=== PATIENT | female | born 1955 | race Caucasian/White ===

== ENCOUNTER 2017-09-16 14:15 | Inpatient (IN) | payer OTHER ==
[2017-09-16 14:48] LABS: ADD MAN DIFF? NO
[2017-09-16 14:50] LABS: WHITE BLOOD COUNT 6.5 10^3/ul (4.8-10.8)
[2017-09-16 14:50] LABS: ABNORMAL IP MESSAGE 1; BASOPHILS % 0.2 % (0.0-2.0); EOSINOPHILS % 0.2 % (0.0-7.0); HEMATOCRIT 25.5 % (37.0-47.0); HEMOGLOBIN 7.4 g/dl (12.0-16.0); LYMPHOCYTES # 0.3 10^3/ul (0.8-2.9); LYMPHOCYTES % 4.6 % (15.0-51.0); MEAN CORPUSCULAR HEMOGLOBIN 25.6 pg (29.0-33.0); MEAN CORPUSCULAR VOLUME 88.2 fl (82.0-101.0); MONOCYTE # 0.2 10^3/ul (0.3-0.9); MONOCYTES % 3.7 % (0.0-11.0); NEUTROPHIL # 5.9 10^3/ul (1.6-7.5); PLATELET COUNT 159 10^3/UL (140-415); RED BLOOD COUNT 2.89 10^6/ul (4.20-5.40); RED CELL DISTRIBUTION WIDTH 15.7 % (11.5-14.5)
[2017-09-16 14:52] LABS: POSITIVE DIFF @See below
[2017-09-16 15:09] LABS: ALANINE AMINOTRANSFERASE 80 IU/L (13-69); ALBUMIN 2.8 g/dl (3.3-4.9); ALBUMIN/GLOBULIN RATIO 1.16; ALKALINE PHOSPHATASE 111 IU/L (42-121); ANION GAP 13 (8-16); ASPARTATE AMINO TRANSFERASE 105 IU/L (15-46); BILIRUBIN,INDIRECT 0.3 mg/dl (0-1.1); BILIRUBIN,TOTAL 0.3 mg/dl (0.2-1.3); BLOOD UREA NITROGEN 32 mg/dl (7-20); CALCIUM 8.1 mg/dl (8.4-10.2); CARBON DIOXIDE 21 mmol/L (21-31); CHLORIDE 115 mmol/L (97-110); CREATINE KINASE 25 IU/L (23-200); CREATININE 1.36 mg/dl (0.44-1.00); GLUCOSE 161 mg/dl (70-220); LIPASE 295 U/L (23-300); POTASSIUM 4.7 mmol/L (3.5-5.1); SODIUM 144 mmol/L (135-144); TOTAL PROTEIN 5.2 g/dl (6.1-8.1)
[2017-09-16 15:10] LABS: INR 1.32; PARTIAL THROMBOPLASTIN TIME 34.2 Sec (25.0-35.0); PROTIME 16.6 Sec (11.9-14.9); PT RATIO 1.3
[2017-09-16 15:12] LABS: ADD UMIC YES; UR ASCORBIC ACID NEGATIVE (NEGATIVE); UR BACTERIA FEW /HPF (NONE SEEN); UR BILIRUBIN (Dip) NEGATIVE (NEGATIVE); UR BLOOD (Dip) 2+ mg/dL (NEGATIVE); UR CLARITY CLEAR (CLEAR); UR COLOR YELLOW (YELLOW); UR GLUCOSE (Dip) 1+ mg/dL (NEGATIVE); UR KETONES (Dip) NEGATIVE (NEGATIVE); UR LEUKOCYTE ESTERASE (Dip) 1+ Leu/ul (NEGATIVE); UR NITRITE (Dip) NEGATIVE (NEGATIVE); UR RBC 1 /HPF (0-5); UR TOTAL PROTEIN (Dip) NEGATIVE (NEGATIVE); UR UROBILINOGEN (Dip) NEGATIVE (NEGATIVE); UR WBC 14 /HPF (0-5)
[2017-09-16 15:21] LABS: B-TYPE NATRIURETIC PEPTIDE 4800 PG/ML (0-125); CK INDEX 1.8; CK-MB 0.45 ng/ml (0.0-2.4); TROPONIN-I 0.013 ng/ml (0.000-0.120)
[2017-09-16] MEDS: CEFTRIAXONE 1 GM/50 ML (PMX) 50 ML IVPB (17:43)
[2017-09-16] MEDS: AZITHROMYCIN 500MG/NS (PMX) 250 ML IV (18:19)
[2017-09-16] MEDS ORDERED: IPRATROPIUM (NEB) 0.5 MG/2.5 ML AMP HHN (20:30)
[2017-09-16] MEDS ORDERED: DOCUSATE SODIUM 100 MG CAP PO ×2 (20:30→21:00)
[2017-09-16] MEDS ORDERED: LEVALBUTEROL (NEB) 0.63 MG/3 ML AMP HHN (20:30)
[2017-09-16] MEDS ORDERED: MYCOPHENOLATE 250 MG CAP PO (21:00)
[2017-09-16] MEDS ORDERED: NACL 0.9% 3 ML SYG IV (21:00)
[2017-09-16] MEDS ORDERED: BISACODYL (EC) 5 MG TAB PO (21:00)
[2017-09-16] MEDS ORDERED: NITROGLYCERIN (SL) 0.4 MG TAB SL (21:00)
[2017-09-16] MEDS ORDERED: ONDANSETRON 4 MG INJ IV (21:00)
[2017-09-16] MEDS ORDERED: morphine LIQ (10 MG/5 ML) CUP PO (21:00)
[2017-09-16] MEDS: MYCOPHENOLATE MOFETIL 500 MG TABLET PO (22:15)
[2017-09-16] MEDS: SOD CHLORIDE 0.9% 1,000 ML IV (22:15)
[2017-09-16] MEDS: CYCLOSPORINE MICROEMULS 25 MG CAP PO (22:16)
[2017-09-16] MEDS: ATORVASTATIN 20 MG TAB PO (22:16)
[2017-09-17 06:22] LABS: ADD MAN DIFF? NO
[2017-09-17 06:29] LABS: ABNORMAL IP MESSAGE 1; BASOPHILS % 0.2 % (0.0-2.0); EOSINOPHILS % 0.6 % (0.0-7.0); HEMATOCRIT 21.5 % (37.0-47.0); LYMPHOCYTES # 1.5 10^3/ul (0.8-2.9); LYMPHOCYTES % 28.5 % (15.0-51.0); MEAN CORPUSCULAR HEMOGLOBIN 25.4 pg (29.0-33.0); MEAN CORPUSCULAR HGB CONC 28.8 g/dl (32.0-37.0); MEAN CORPUSCULAR VOLUME 88.1 fl (82.0-101.0); MEAN PLATELET VOLUME 11.3 fl (7.4-10.4); MONOCYTE # 0.6 10^3/ul (0.3-0.9); MONOCYTES % 11.7 % (0.0-11.0); NEUTROPHIL # 3.1 10^3/ul (1.6-7.5); NEUTROPHILS % 58.8 % (39.0-77.0); PLATELET COUNT 144 10^3/UL (140-415); RED BLOOD COUNT 2.44 10^6/ul (4.20-5.40); RED CELL DISTRIBUTION WIDTH 15.6 % (11.5-14.5)
[2017-09-17 06:29] LABS: WHITE BLOOD COUNT 5.2 10^3/ul (4.8-10.8)
[2017-09-17 06:39] LABS: IRON 67 ug/dl (35-150)
[2017-09-17 06:49] LABS: % IRON SATURATION 38 % SAT (22-52); TOTAL IRON BINDING CAPACITY 176 ug/dl (241-421)
[2017-09-17 06:57] LABS: ALANINE AMINOTRANSFERASE 61 IU/L (13-69); ALBUMIN 2.3 g/dl (3.3-4.9); ALBUMIN/GLOBULIN RATIO 0.95; ALKALINE PHOSPHATASE 86 IU/L (42-121); ANION GAP 10 (8-16); ASPARTATE AMINO TRANSFERASE 41 IU/L (15-46); BILIRUBIN,INDIRECT 0.1 mg/dl (0-1.1); BILIRUBIN,TOTAL 0.1 mg/dl (0.2-1.3); BLOOD UREA NITROGEN 30 mg/dl (7-20); CALCIUM 8.2 mg/dl (8.4-10.2); CARBON DIOXIDE 21 mmol/L (21-31); CHLORIDE 121 mmol/L (97-110); CREATININE 1.32 mg/dl (0.44-1.00); GLUCOSE 78 mg/dl (70-220); HDL CHOLESTEROL 19 mg/dl (35-98); MAGNESIUM 1.7 mg/dl (1.7-2.5); POTASSIUM 5.1 mmol/L (3.5-5.1); SODIUM 147 mmol/L (135-144); TOTAL PROTEIN 4.7 g/dl (6.1-8.1); TRIGLYCERIDES 73 mg/dl (0-149)
[2017-09-17] MEDS ORDERED: APIXABAN 5 MG TABLET PO (07:00)
[2017-09-17 07:08] LABS: CHOLESTEROL < 50 mg/dl (100-200)
[2017-09-17 07:10] LABS: HEMOGLOBIN 6.2 g/dl (12.0-16.0); POSITIVE DIFF @See below
[2017-09-17 07:12] LABS: THYROID STIMULATING HORMONE 0.748 MIU/L (0.465-4.680)
[2017-09-17 07:31] LABS: HEMOGLOBIN A1C 5.4 % (0-5.9)
[2017-09-17] MEDS: FEBUXOSTAT 40 MG TABLET PO (09:38)
[2017-09-17] MEDS: predniSONE 5 MG TAB PO (09:38)
[2017-09-17] MEDS: METOPROLOL (XL) 25 MG TAB PO (09:38)
[2017-09-17] MEDS: MYCOPHENOLATE MOFETIL 500 MG TABLET PO ×2 (09:38→20:37)
[2017-09-17] MEDS: FAMOTIDINE 20 MG TAB PO ×2 (09:38→20:37)
[2017-09-17] MEDS: CYCLOSPORINE MICROEMULS 25 MG CAP PO ×2 (09:38→20:37)
[2017-09-17] MEDS: NA BICARBONATE 650 MG TAB PO (09:39)
[2017-09-17] MEDS ORDERED: PROVENTIL HFA 6.7GM INHALER INH (11:30)
[2017-09-17] MEDS: FISH OIL 1,000 MG CAP PO ×2 (12:23→20:36)
[2017-09-17] MEDS: CALCITRIOL 0.25 MCG CAP PO (12:23)
[2017-09-17] MEDS: PEG/ELECTROLYTES 4L BTL PO (13:00)
[2017-09-17 13:21] LABS: IMMEDIATE SPIN CROSSMATCH 1 2
[2017-09-17] MEDS: ACETAMINOPHEN 325 MG TAB PO (13:47)
[2017-09-17] MEDS: LACTULOSE 30ML CUP PO ×2 (15:29→19:44)
[2017-09-17] MEDS ORDERED: CEFTRIAXONE 1 GM/50 ML (PMX) 50 ML IVPB (17:00)
[2017-09-17] MEDS: EPOETIN 10000 UNITS/1 ML INJ (ESRD) SC (17:49)
[2017-09-17 17:57] LABS: OCCULT BLOOD STOOL NEGATIVE (NEGATIVE)
[2017-09-17] MEDS ORDERED: AZITHROMYCIN 500MG/NS (PMX) 250 ML IVPB (18:00)
[2017-09-17] MEDS: ATORVASTATIN 20 MG TAB PO (20:36)
[2017-09-18] MEDS: LACTULOSE 30ML CUP PO ×4 (01:18→21:13)
[2017-09-18] MEDS: hydrALAzine 20 MG INJ IV (06:51)
[2017-09-18 07:06] LABS: ADD MAN DIFF? NO
[2017-09-18 07:08] LABS: BASOPHILS % 0.2 % (0.0-2.0); EOSINOPHILS % 0.2 % (0.0-7.0); HEMATOCRIT 31.7 % (37.0-47.0); HEMOGLOBIN 9.8 g/dl (12.0-16.0); LYMPHOCYTES # 1.5 10^3/ul (0.8-2.9); LYMPHOCYTES % 22.1 % (15.0-51.0); MEAN CORPUSCULAR HEMOGLOBIN 26.1 pg (29.0-33.0); MEAN CORPUSCULAR HGB CONC 30.9 g/dl (32.0-37.0); MEAN CORPUSCULAR VOLUME 84.3 fl (82.0-101.0); MEAN PLATELET VOLUME 11.2 fl (7.4-10.4); MONOCYTE # 0.7 10^3/ul (0.3-0.9); MONOCYTES % 10.4 % (0.0-11.0); NEUTROPHIL # 4.4 10^3/ul (1.6-7.5); NEUTROPHILS % 66.8 % (39.0-77.0); PLATELET COUNT 157 10^3/UL (140-415); RED BLOOD COUNT 3.76 10^6/ul (4.20-5.40); RED CELL DISTRIBUTION WIDTH 15.4 % (11.5-14.5)
[2017-09-18 07:08] LABS: WHITE BLOOD COUNT 6.6 10^3/ul (4.8-10.8)
[2017-09-18 07:36] LABS: ANION GAP 14 (8-16); BLOOD UREA NITROGEN 28 mg/dl (7-20); CARBON DIOXIDE 23 mmol/L (21-31); CHLORIDE 116 mmol/L (97-110); CREATININE 1.43 mg/dl (0.44-1.00); GLUCOSE 78 mg/dl (70-220); MAGNESIUM 1.7 mg/dl (1.7-2.5); PHOSPHORUS 3.4 mg/dl (2.5-4.9); POTASSIUM 4.8 mmol/L (3.5-5.1); SODIUM 148 mmol/L (135-144)
[2017-09-18] MEDS ORDERED: METOPROLOL (XL) 25 MG TAB PO (09:00)
[2017-09-18] MEDS: FEBUXOSTAT 40 MG TABLET PO (09:28)
[2017-09-18] MEDS: MYCOPHENOLATE MOFETIL 500 MG TABLET PO ×2 (09:28→21:19)
[2017-09-18] MEDS: predniSONE 5 MG TAB PO (09:28)
[2017-09-18] MEDS: FISH OIL 1,000 MG CAP PO ×2 (09:28→21:12)
[2017-09-18] MEDS: FAMOTIDINE 20 MG TAB PO ×2 (09:28→21:12)
[2017-09-18] MEDS: NA BICARBONATE 650 MG TAB PO (09:28)
[2017-09-18] MEDS: CALCITRIOL 0.25 MCG CAP PO (09:28)
[2017-09-18] MEDS: CYCLOSPORINE MICROEMULS 25 MG CAP PO ×2 (09:28→21:19)
[2017-09-18] MEDS: ACETAMINOPHEN 325 MG TAB PO (10:42)
[2017-09-18] MEDS ORDERED: ALBUMIN HUMAN 25% 50 ML IV (11:00)
[2017-09-18] MEDS ORDERED: PROPOFOL 20 ML (17:41)
[2017-09-18] MEDS ORDERED: FENTAnyl 50 MCG/ML VIAL (17:42)
[2017-09-18] MEDS ORDERED: MIDAZOLAM 1 MG/ML 2 ML INJ (17:42)
[2017-09-18] MEDS: ATORVASTATIN 20 MG TAB PO (21:12)
[2017-09-19] MEDS: LACTULOSE 30ML CUP PO ×4 (01:00→13:00)
[2017-09-19] MEDS: CYCLOSPORINE MICROEMULS 25 MG CAP PO ×2 (09:06→20:35)
[2017-09-19] MEDS: FEBUXOSTAT 40 MG TABLET PO (09:06)
[2017-09-19] MEDS: CALCITRIOL 0.25 MCG CAP PO (09:06)
[2017-09-19] MEDS: NA BICARBONATE 650 MG TAB PO (09:06)
[2017-09-19] MEDS: FAMOTIDINE 20 MG TAB PO (09:07)
[2017-09-19] MEDS: predniSONE 5 MG TAB PO (09:07)
[2017-09-19] MEDS: FISH OIL 1,000 MG CAP PO ×2 (09:07→20:36)
[2017-09-19] MEDS: MYCOPHENOLATE MOFETIL 500 MG TABLET PO ×2 (09:07→20:35)
[2017-09-19 10:17] LABS: ADD MAN DIFF? NO
[2017-09-19 10:24] LABS: WHITE BLOOD COUNT 4.9 10^3/ul (4.8-10.8)
[2017-09-19 10:24] LABS: BASOPHILS % 0.2 % (0.0-2.0); EOSINOPHILS % 0.2 % (0.0-7.0); HEMATOCRIT 33.9 % (37.0-47.0); HEMOGLOBIN 10.4 g/dl (12.0-16.0); LYMPHOCYTES # 0.9 10^3/ul (0.8-2.9); LYMPHOCYTES % 17.4 % (15.0-51.0); MEAN CORPUSCULAR HEMOGLOBIN 26.4 pg (29.0-33.0); MEAN CORPUSCULAR HGB CONC 30.7 g/dl (32.0-37.0); MEAN PLATELET VOLUME 11.5 fl (7.4-10.4); MONOCYTE # 0.6 10^3/ul (0.3-0.9); MONOCYTES % 13.1 % (0.0-11.0); NEUTROPHIL # 3.3 10^3/ul (1.6-7.5); NEUTROPHILS % 68.5 % (39.0-77.0); PLATELET COUNT 162 10^3/UL (140-415); RED BLOOD COUNT 3.94 10^6/ul (4.20-5.40); RED CELL DISTRIBUTION WIDTH 15.9 % (11.5-14.5)
[2017-09-19 10:54] LABS: ANION GAP 13 (8-16); BLOOD UREA NITROGEN 21 mg/dl (7-20); CALCIUM 9.1 mg/dl (8.4-10.2); CARBON DIOXIDE 25 mmol/L (21-31); CHLORIDE 115 mmol/L (97-110); CREATININE 1.23 mg/dl (0.44-1.00); GLUCOSE 100 mg/dl (70-220); MAGNESIUM 1.6 mg/dl (1.7-2.5); PHOSPHORUS 3.9 mg/dl (2.5-4.9); POTASSIUM 4.8 mmol/L (3.5-5.1); SODIUM 148 mmol/L (135-144)
[2017-09-19] MEDS: MEROPENEM 1 GM/50ML(PMX) 50 ML IVPB ×2 (11:23→20:36)
[2017-09-19] MEDS: MAGNESIUM SULFATE 1 GM/D5W 100 ML IVPB (15:11)
[2017-09-19] MEDS: hydrALAzine 20 MG INJ IV (16:27)
[2017-09-19] MEDS: EPOETIN 10000 UNITS/1 ML INJ (ESRD) SC (16:29)
[2017-09-19] MEDS: PANTOPRAZOLE (EC) 40 MG TAB PO (17:29)
[2017-09-19] MEDS ORDERED: PANTOPRAZOLE (EC) 40 MG TAB PO (18:00)
[2017-09-19] MEDS: ATORVASTATIN 20 MG TAB PO (20:36)
[2017-09-19] MEDS: ACETAMINOPHEN 325 MG TAB PO (20:39)
[2017-09-19] MEDS ORDERED: APIXABAN 5 MG TABLET PO (21:00)
[2017-09-20] MEDS: PANTOPRAZOLE (EC) 40 MG TAB PO ×2 (05:47→17:09)
[2017-09-20 08:42] LABS: ADD MAN DIFF? NO
[2017-09-20 08:44] LABS: WHITE BLOOD COUNT 5.5 10^3/ul (4.8-10.8)
[2017-09-20 08:44] LABS: BASOPHILS % 0.2 % (0.0-2.0); EOSINOPHILS # 0.1 10^3/ul (0.0-0.5); EOSINOPHILS % 0.9 % (0.0-7.0); HEMATOCRIT 33.8 % (37.0-47.0); HEMOGLOBIN 10.6 g/dl (12.0-16.0); LYMPHOCYTES # 1.5 10^3/ul (0.8-2.9); LYMPHOCYTES % 26.6 % (15.0-51.0); MEAN CORPUSCULAR HEMOGLOBIN 26.8 pg (29.0-33.0); MEAN CORPUSCULAR HGB CONC 31.4 g/dl (32.0-37.0); MEAN CORPUSCULAR VOLUME 85.4 fl (82.0-101.0); MEAN PLATELET VOLUME 10.2 fl (7.4-10.4); MONOCYTE # 0.8 10^3/ul (0.3-0.9); MONOCYTES % 14.8 % (0.0-11.0); NEUTROPHIL # 3.1 10^3/ul (1.6-7.5); PLATELET COUNT 158 10^3/UL (140-415); RED BLOOD COUNT 3.96 10^6/ul (4.20-5.40); RED CELL DISTRIBUTION WIDTH 15.7 % (11.5-14.5)
[2017-09-20] MEDS: MEROPENEM 1 GM/50ML(PMX) 50 ML IVPB ×2 (08:49→22:14)
[2017-09-20] MEDS: CALCITRIOL 0.25 MCG CAP PO (08:49)
[2017-09-20] MEDS: CYCLOSPORINE MICROEMULS 25 MG CAP PO ×2 (08:49→22:20)
[2017-09-20] MEDS: NA BICARBONATE 650 MG TAB PO (08:49)
[2017-09-20] MEDS: FISH OIL 1,000 MG CAP PO ×2 (08:49→22:14)
[2017-09-20] MEDS: FEBUXOSTAT 40 MG TABLET PO (08:50)
[2017-09-20] MEDS: MYCOPHENOLATE MOFETIL 500 MG TABLET PO ×2 (08:50→22:15)
[2017-09-20] MEDS: predniSONE 5 MG TAB PO (08:50)
[2017-09-20] MEDS ORDERED: PANTOPRAZOLE (EC) 40 MG TAB PO (09:00)
[2017-09-20 09:06] LABS: ANION GAP 14 (8-16); BLOOD UREA NITROGEN 15 mg/dl (7-20); CALCIUM 8.9 mg/dl (8.4-10.2); CARBON DIOXIDE 25 mmol/L (21-31); CHLORIDE 111 mmol/L (97-110); CREATININE 1.26 mg/dl (0.44-1.00); GLUCOSE 87 mg/dl (70-220); MAGNESIUM 1.8 mg/dl (1.7-2.5); PHOSPHORUS 3.5 mg/dl (2.5-4.9); POTASSIUM 3.8 mmol/L (3.5-5.1); SODIUM 146 mmol/L (135-144)
[2017-09-20] MEDS ORDERED: LIDOCAINE 1% (MPF) 5 ML VIAL SC (15:30)
[2017-09-20 16:27] LABS: CYCLOSPORIN 238 mcg/L
[2017-09-20] MEDS: MAGNESIUM SULFATE 2 GM/50 ML 50 ML IVPB (17:09)
[2017-09-20] MEDS: POTASSIUM CHLORIDE (SR) 10 MEQ TAB PO (17:10)
[2017-09-20] MEDS: ATORVASTATIN 20 MG TAB PO (22:14)
[2017-09-20] MEDS: APIXABAN 5 MG TABLET PO (22:14)
[2017-09-21] MEDS: PANTOPRAZOLE (EC) 40 MG TAB PO ×2 (05:53→17:10)
[2017-09-21 07:34] LABS: ADD MAN DIFF? NO
[2017-09-21 07:40] LABS: WHITE BLOOD COUNT 5.2 10^3/ul (4.8-10.8)
[2017-09-21 07:40] LABS: BASOPHILS % 0.2 % (0.0-2.0); EOSINOPHILS # 0.1 10^3/ul (0.0-0.5); EOSINOPHILS % 1.1 % (0.0-7.0); HEMATOCRIT 34.5 % (37.0-47.0); HEMOGLOBIN 10.6 g/dl (12.0-16.0); LYMPHOCYTES # 1.6 10^3/ul (0.8-2.9); MEAN CORPUSCULAR HEMOGLOBIN 25.9 pg (29.0-33.0); MEAN CORPUSCULAR HGB CONC 30.7 g/dl (32.0-37.0); MEAN CORPUSCULAR VOLUME 84.4 fl (82.0-101.0); MEAN PLATELET VOLUME 10.6 fl (7.4-10.4); MONOCYTE # 0.9 10^3/ul (0.3-0.9); MONOCYTES % 16.4 % (0.0-11.0); NEUTROPHIL # 2.7 10^3/ul (1.6-7.5); NEUTROPHILS % 51.7 % (39.0-77.0); PLATELET COUNT 167 10^3/UL (140-415); RED BLOOD COUNT 4.09 10^6/ul (4.20-5.40); RED CELL DISTRIBUTION WIDTH 15.8 % (11.5-14.5)
[2017-09-21 08:02] LABS: ANION GAP 12 (8-16); BLOOD UREA NITROGEN 12 mg/dl (7-20); CALCIUM 9.2 mg/dl (8.4-10.2); CARBON DIOXIDE 27 mmol/L (21-31); CHLORIDE 112 mmol/L (97-110); CREATININE 1.26 mg/dl (0.44-1.00); GLUCOSE 91 mg/dl (70-220); SODIUM 146 mmol/L (135-144)
[2017-09-21] MEDS: predniSONE 5 MG TAB PO (09:02)
[2017-09-21] MEDS: FEBUXOSTAT 40 MG TABLET PO (09:02)
[2017-09-21] MEDS: FISH OIL 1,000 MG CAP PO ×2 (09:02→20:38)
[2017-09-21] MEDS: APIXABAN 5 MG TABLET PO ×2 (09:02→20:38)
[2017-09-21] MEDS: NA BICARBONATE 650 MG TAB PO (09:02)
[2017-09-21] MEDS: CYCLOSPORINE MICROEMULS 25 MG CAP PO ×2 (09:02→20:38)
[2017-09-21] MEDS: MYCOPHENOLATE MOFETIL 500 MG TABLET PO ×2 (09:02→20:38)
[2017-09-21] MEDS: MEROPENEM 1 GM/50ML(PMX) 50 ML IVPB ×2 (09:10→20:38)
[2017-09-21] MEDS: CALCITRIOL 0.25 MCG CAP PO (11:20)
[2017-09-21] MEDS: MAGNESIUM SULFATE 2 GM/50 ML 50 ML IVPB (14:41)
[2017-09-21] MEDS: EPOETIN 10000 UNITS/1 ML INJ (ESRD) SC (17:11)
[2017-09-21] MEDS: ATORVASTATIN 20 MG TAB PO (20:38)
[2017-09-22] MEDS: PANTOPRAZOLE (EC) 40 MG TAB PO ×2 (06:14→18:02)
[2017-09-22 08:49] LABS: ADD MAN DIFF? NO
[2017-09-22 08:53] LABS: BASOPHILS % 0.2 % (0.0-2.0); EOSINOPHILS # 0.1 10^3/ul (0.0-0.5); EOSINOPHILS % 1.3 % (0.0-7.0); HEMATOCRIT 36.5 % (37.0-47.0); HEMOGLOBIN 11.1 g/dl (12.0-16.0); LYMPHOCYTES # 1.5 10^3/ul (0.8-2.9); LYMPHOCYTES % 28.5 % (15.0-51.0); MEAN CORPUSCULAR HGB CONC 30.4 g/dl (32.0-37.0); MEAN CORPUSCULAR VOLUME 85.5 fl (82.0-101.0); MONOCYTE # 0.8 10^3/ul (0.3-0.9); MONOCYTES % 14.8 % (0.0-11.0); NEUTROPHILS % 54.8 % (39.0-77.0); PLATELET COUNT 173 10^3/UL (140-415); RED BLOOD COUNT 4.27 10^6/ul (4.20-5.40); RED CELL DISTRIBUTION WIDTH 15.8 % (11.5-14.5)
[2017-09-22 08:53] LABS: WHITE BLOOD COUNT 5.4 10^3/ul (4.8-10.8)
[2017-09-22 09:13] LABS: ANION GAP 13 (8-16); BLOOD UREA NITROGEN 12 mg/dl (7-20); CARBON DIOXIDE 28 mmol/L (21-31); CHLORIDE 108 mmol/L (97-110); CREATININE 1.23 mg/dl (0.44-1.00); GLUCOSE 85 mg/dl (70-220); POTASSIUM 3.8 mmol/L (3.5-5.1); SODIUM 145 mmol/L (135-144)
[2017-09-22] MEDS: FISH OIL 1,000 MG CAP PO (09:18)
[2017-09-22] MEDS: MYCOPHENOLATE MOFETIL 500 MG TABLET PO (09:18)
[2017-09-22] MEDS: MEROPENEM 1 GM/50ML(PMX) 50 ML IVPB ×2 (09:18→17:08)
[2017-09-22] MEDS: CYCLOSPORINE MICROEMULS 25 MG CAP PO (09:18)
[2017-09-22] MEDS: FEBUXOSTAT 40 MG TABLET PO (09:18)
[2017-09-22] MEDS: APIXABAN 5 MG TABLET PO (09:19)
[2017-09-22] MEDS: CALCITRIOL 0.25 MCG CAP PO (09:19)
[2017-09-22] MEDS: NA BICARBONATE 650 MG TAB PO (09:19)
[2017-09-22] MEDS: predniSONE 5 MG TAB PO (09:19)
== END 2017-09-22 19:30 | disposition home health service (06) | DRG 308 ==
LOC: E/R 14:15 → MS4 17:29
PROC: 0DBM8ZX Excision of Descending Colon, Via Natural or Artificial Opening Endoscopic, Diagnostic (ICD-10-PCS; principal; 2017-09-18 16:56)
PROC: 0DB38ZX Excision of Lower Esophagus, Via Natural or Artificial Opening Endoscopic, Diagnostic (ICD-10-PCS; 2017-09-18 16:56)
PROC: 0DB68ZX Excision of Stomach, Via Natural or Artificial Opening Endoscopic, Diagnostic (ICD-10-PCS; 2017-09-18 16:56)
PROC: 30233N1 Transfusion of Nonautologous Red Blood Cells into Peripheral Vein, Percutaneous Approach (ICD-10-PCS; 2017-09-18 16:56)
DX: I47.1 Supraventricular tachycardia (principal); J18.9 Pneumonia, unspecified organism; K25.4 Chronic or unspecified gastric ulcer with hemorrhage; N18.6 End stage renal disease; N39.0 Urinary tract infection, site not specified; E87.0 Hyperosmolality and hypernatremia; Z94.0 Kidney transplant status; I12.0 Hypertensive chronic kidney disease with stage 5 chronic kidney disease or end stage renal disease; D62 Acute posthemorrhagic anemia; T86.12 Kidney transplant failure; D63.1 Anemia in chronic kidney disease; E78.00 Pure hypercholesterolemia, unspecified; I48.0 Paroxysmal atrial fibrillation; I34.0 Nonrheumatic mitral (valve) insufficiency; I07.1 Rheumatic tricuspid insufficiency; I12.9 Hypertensive chronic kidney disease with stage 1 through stage 4 chronic kidney disease, or unspecified chronic kidney disease; N18.3 Chronic kidney disease, stage 3 (moderate); K21.0 Gastro-esophageal reflux disease with esophagitis; K57.30 Diverticulosis of large intestine without perforation or abscess without bleeding; K63.5 Polyp of colon; K64.8 Other hemorrhoids; K64.4 Residual hemorrhoidal skin tags; B96.20 Unspecified Escherichia coli [E. coli] as the cause of diseases classified elsewhere; Z16.12 Extended spectrum beta lactamase (ESBL) resistance; M10.9 Gout, unspecified; Z86.73 Personal history of transient ischemic attack (TIA), and cerebral infarction without residual deficits; Z79.01 Long term (current) use of anticoagulants; Z79.899 Other long term (current) drug therapy
CPT/HCPCS: 36415; 36430; 71045; 76705; 80048; 80053; 80061; 80158; 81001; 82270; 82550; 82553; 83036; 83540; 83690; 83735; 83880; 84100; 84443; 84484; 85025; 85610; 85730; 86850; 86900; 86901; 86920; 87040; 87086; 88305; 88312; 88313; 88342; 93306; 96365; 96375; 99291-25

== ENCOUNTER 2017-10-20 11:23 | Inpatient (IN) | payer OTHER ==
[2017-10-20] MEDS: SOD CHLORIDE 0.9% 500 ML IV (12:34)
[2017-10-20] MEDS: ASPIRIN 81 MG TAB PO (12:34)
[2017-10-20 13:04] LABS: ADD MAN DIFF? NO
[2017-10-20 13:06] LABS: BASOPHILS % 0.1 % (0.0-2.0); HEMATOCRIT 32.3 % (37.0-47.0); HEMOGLOBIN 10.1 g/dl (12.0-16.0); LYMPHOCYTES # 1.2 10^3/ul (0.8-2.9); LYMPHOCYTES % 13.1 % (15.0-51.0); MEAN CORPUSCULAR HEMOGLOBIN 26.4 pg (29.0-33.0); MEAN CORPUSCULAR HGB CONC 31.3 g/dl (32.0-37.0); MEAN CORPUSCULAR VOLUME 84.3 fl (82.0-101.0); MEAN PLATELET VOLUME 10.8 fl (7.4-10.4); MONOCYTE # 1.3 10^3/ul (0.3-0.9); MONOCYTES % 14.1 % (0.0-11.0); NEUTROPHIL # 6.5 10^3/ul (1.6-7.5); NEUTROPHILS % 72.3 % (39.0-77.0); PLATELET COUNT 200 10^3/UL (140-415); RED BLOOD COUNT 3.83 10^6/ul (4.20-5.40); RED CELL DISTRIBUTION WIDTH 14.9 % (11.5-14.5)
[2017-10-20 13:12] LABS: ALANINE AMINOTRANSFERASE 77 IU/L (13-69); ALBUMIN 2.9 g/dl (3.3-4.9); ALBUMIN/GLOBULIN RATIO 1.16; ALKALINE PHOSPHATASE 100 IU/L (42-121); ANION GAP 15 (8-16); ASPARTATE AMINO TRANSFERASE 104 IU/L (15-46); BILIRUBIN,INDIRECT 0.9 mg/dl (0-1.1); BILIRUBIN,TOTAL 0.9 mg/dl (0.2-1.3); BLOOD UREA NITROGEN 24 mg/dl (7-20); CALCIUM 8.4 mg/dl (8.4-10.2); CARBON DIOXIDE 20 mmol/L (21-31); CHLORIDE 109 mmol/L (97-110); CREATININE 1.18 mg/dl (0.44-1.00); GLUCOSE 104 mg/dl (70-220); LIPASE 195 U/L (23-300); POTASSIUM 3.5 mmol/L (3.5-5.1); SODIUM 140 mmol/L (135-144); TOTAL PROTEIN 5.4 g/dl (6.1-8.1)
[2017-10-20 13:23] LABS: TROPONIN-I 0.047 ng/ml (0.000-0.120)
[2017-10-20] MEDS ORDERED: MAGNESIUM HYDROXIDE 30ML CUP PO (16:30)
[2017-10-20] MEDS ORDERED: NA PHOSPHATE/BIPHOS 133 ML ENEMA PR (16:30)
[2017-10-20] MEDS ORDERED: HYDROCODONE/APAP (5/325) TAB PO (16:30)
[2017-10-20] MEDS ORDERED: morphine 2 MG INJ IV (16:30)
[2017-10-20] MEDS ORDERED: NACL 0.9% 3 ML SYG IV (16:30)
[2017-10-20] MEDS ORDERED: LORAZEPAM 2 MG INJ IV (16:30)
[2017-10-20] MEDS ORDERED: DOCUSATE SODIUM 100 MG CAP PO ×2 (16:30→17:00)
[2017-10-20] MEDS: SOD CHLORIDE 0.45% 1,000 ML IV (16:41)
[2017-10-20] MEDS ORDERED: ACETAMINOPHEN 325 MG TAB PO (17:00)
[2017-10-20] MEDS ORDERED: ALBUTEROL HFA 8 GM INHALER INH (17:00)
[2017-10-20 17:07] LABS: FREE T4 (FREE THYROXINE) 1.31 ng/dl (0.78-2.44)
[2017-10-20] MEDS: PANTOPRAZOLE (EC) 40 MG TAB PO (17:21)
[2017-10-20] MEDS: LIDOCAINE 2% VISC 15 ML CUP PO (17:21)
[2017-10-20] MEDS: ONDANSETRON 4 MG INJ IV (18:28)
[2017-10-20 18:37] LABS: CREATINE KINASE 42 IU/L (23-200)
[2017-10-20 18:47] LABS: CK INDEX 7.4; CK-MB 3.12 ng/ml (0.0-2.4)
[2017-10-20 18:51] LABS: TROPONIN-I 0.582 ng/ml (0.000-0.120)
[2017-10-20] MEDS: FISH OIL 1,000 MG CAP PO (20:43)
[2017-10-20] MEDS: MYCOPHENOLATE 250 MG CAP PO (20:43)
[2017-10-20] MEDS: CYCLOSPORINE MICROEMULS 25 MG CAP PO (20:44)
[2017-10-20] MEDS: ENOXAPARIN 80 MG/0.8 ML SYG SC (20:47)
[2017-10-20] MEDS: ATORVASTATIN 20 MG TAB PO (20:50)
[2017-10-20] MEDS ORDERED: APIXABAN 5 MG TABLET PO (21:00)
[2017-10-20] MEDS: DILTIAZEM (CD) 120 MG CAP PO (21:28)
[2017-10-20 21:47] LABS: ADD UMIC NO; UR ASCORBIC ACID NEGATIVE (NEGATIVE); UR BILIRUBIN (Dip) NEGATIVE (NEGATIVE); UR BLOOD (Dip) NEGATIVE (NEGATIVE); UR CLARITY CLEAR (CLEAR); UR COLOR STRAW (YELLOW); UR GLUCOSE (Dip) NEGATIVE (NEGATIVE); UR KETONES (Dip) NEGATIVE (NEGATIVE); UR LEUKOCYTE ESTERASE (Dip) NEGATIVE Leu/ul (NEGATIVE); UR NITRITE (Dip) NEGATIVE (NEGATIVE); UR SPECIFIC GRAVITY (Dip) 1.005 (1.003-1.030); UR TOTAL PROTEIN (Dip) NEGATIVE (NEGATIVE); UR UROBILINOGEN (Dip) NEGATIVE (NEGATIVE)
[2017-10-21 01:04] LABS: CREATINE KINASE 39 IU/L (23-200)
[2017-10-21 01:17] LABS: CK-MB 3.13 ng/ml (0.0-2.4)
[2017-10-21 01:19] LABS: TROPONIN-I 0.547 ng/ml (0.000-0.120)
[2017-10-21] MEDS: PANTOPRAZOLE (EC) 40 MG TAB PO ×2 (05:12→17:45)
[2017-10-21] MEDS: SOD CHLORIDE 0.45% 1,000 ML IV (05:13)
[2017-10-21] MEDS ORDERED: ENOXAPARIN 80 MG/0.8 ML SYG SC (08:00)
[2017-10-21] MEDS: ACETAMINOPHEN 325 MG TAB PO (08:13)
[2017-10-21] MEDS: CALCITRIOL 0.25 MCG CAP PO (08:59)
[2017-10-21] MEDS: CYCLOSPORINE MICROEMULS 25 MG CAP PO (08:59)
[2017-10-21] MEDS: NA BICARBONATE 650 MG TAB PO (08:59)
[2017-10-21] MEDS: MYCOPHENOLATE 250 MG CAP PO (08:59)
[2017-10-21] MEDS: FEBUXOSTAT 40 MG TABLET PO (08:59)
[2017-10-21 09:00] LABS: ADD MAN DIFF? NO
[2017-10-21] MEDS: DILTIAZEM (CD) 120 MG CAP PO (09:00)
[2017-10-21] MEDS: FISH OIL 1,000 MG CAP PO (09:00)
[2017-10-21] MEDS: APIXABAN 5 MG TABLET PO (09:00)
[2017-10-21] MEDS: predniSONE 5 MG TAB PO (09:00)
[2017-10-21 09:13] LABS: WHITE BLOOD COUNT 6.4 10^3/ul (4.8-10.8)
[2017-10-21 09:13] LABS: BASOPHILS % 0.2 % (0.0-2.0); EOSINOPHILS % 0.5 % (0.0-7.0); HEMATOCRIT 33.9 % (37.0-47.0); HEMOGLOBIN 10.2 g/dl (12.0-16.0); LYMPHOCYTES # 1.5 10^3/ul (0.8-2.9); MEAN CORPUSCULAR HEMOGLOBIN 25.6 pg (29.0-33.0); MEAN CORPUSCULAR HGB CONC 30.1 g/dl (32.0-37.0); MEAN CORPUSCULAR VOLUME 85.2 fl (82.0-101.0); MEAN PLATELET VOLUME 10.8 fl (7.4-10.4); MONOCYTE # 0.9 10^3/ul (0.3-0.9); MONOCYTES % 13.7 % (0.0-11.0); NEUTROPHIL # 3.9 10^3/ul (1.6-7.5); NEUTROPHILS % 61.3 % (39.0-77.0); PLATELET COUNT 197 10^3/UL (140-415); RED BLOOD COUNT 3.98 10^6/ul (4.20-5.40); RED CELL DISTRIBUTION WIDTH 15.4 % (11.5-14.5)
[2017-10-21 09:24] LABS: HEMOGLOBIN A1C 5.4 % (0-5.9)
[2017-10-21 09:38] LABS: HDL CHOLESTEROL 23 mg/dl (35-98); TRIGLYCERIDES 74 mg/dl (0-149)
[2017-10-21 09:39] LABS: ANION GAP 12 (8-16); BLOOD UREA NITROGEN 17 mg/dl (7-20); CALCIUM 8.4 mg/dl (8.4-10.2); CARBON DIOXIDE 24 mmol/L (21-31); CHLORIDE 112 mmol/L (97-110); CREATININE 1.21 mg/dl (0.44-1.00); GLUCOSE 68 mg/dl (70-220); POTASSIUM 3.6 mmol/L (3.5-5.1); SODIUM 144 mmol/L (135-144)
[2017-10-21 10:13] LABS: CHOLESTEROL < 50 mg/dl (100-200)
[2017-10-23] MEDS ORDERED: EPOETIN 3000 UNITS/ML (NON ESRD/NON ONCOLOGY) SC (17:00)
[2017-10-26] MEDS ORDERED: ERGOCALCIFEROL 50,000 UNIT CAP PO (09:00)
== END 2017-10-21 18:17 | disposition home or self-care (01) | DRG 281 ==
LOC: MS4 10-21 → E/R 11:23 → MS3 13:59
DX: I47.1 Supraventricular tachycardia (principal); I21.A1 Myocardial infarction type 2; Z94.0 Kidney transplant status; R07.9 Chest pain, unspecified; I10 Essential (primary) hypertension; E78.5 Hyperlipidemia, unspecified; Z86.73 Personal history of transient ischemic attack (TIA), and cerebral infarction without residual deficits
CPT/HCPCS: 36415; 71045; 80048; 80053; 80061; 81003; 82550; 82553; 83036; 83690; 84439; 84443; 84484; 85025; 87086; 99285-25